=== PATIENT | female | born 1970 | race Caucasian/White ===

== ENCOUNTER → 2020-11-16 | Outpatient (CLI) | payer OTHER ==
--- NOTE | 2020-11-16 18:27 | RAD ---
Examination: XR [id number]_RT 1-2 VIEWS History: Reason: NO CARTILAGE IN RIGHT KNEE. RIGHT KNEE PAIN. / Spl. Instructions: / History: Comparison/Correlation: None Findings: Frontal and lateral views of the right knee were obtained. Spurring about the knee is noted. Small knee joint effusion is present. No fracture or bone destructi on. Minimal medial meniscal calcification noted. Impression: Joint effusion. No acute bony process. Mild degenerative change. Electronically signed by: Perico Ingram MD (11/16/2020 6:25 PM) [id number]
== END ==
LOC: RAD 14:28
PROVIDERS: ATTEND Surgery
DX: M17.11 Unilateral primary osteoarthritis, right knee (principal); M25.461 Effusion, right knee; M76.891 Other specified enthesopathies of right lower limb, excluding foot
CPT/HCPCS: 73560